=== PATIENT | male | born 1980 | race Caucasian/White ===

== ENCOUNTER 2021-06-23 09:47 | Emergency (ER) | payer OTHER ==
[~2021-06-23] VITALS: Ht 172.7 cm; Wt 90.7 kg
[~2021-06-23 09:47] MED LIST: VALTREX1000 MG
[2021-06-23] MEDS ORDERED: ONDANSETRON ODT8 MG PO (09:59)
[2021-06-23] MEDS ORDERED: DICLOFENAC PO (09:59)
[2021-06-23 10:52] LABS: ABSOLUTE LYMPHOCYTES 0.5 thou/uL (0.8-5.3); ABSOLUTE MONOCYTES 0.5 thou/uL (0.0-1.2); ABSOLUTE NEUTROPHILS 2.5 thou/uL (1.6-8.1); BASOPHILS 0.7 %; EOSINOPHILS 0.8 %; HEMATOCRIT 47.5 % (42.0-52.0); MCH 30.5 pg (26.0-34.0); MCHC 33.8 g/dL (28.0-37.0); MCV 90.4 fL (80.0-100.0); MONOCYTES 14.2 %; MPV 10.3 fl. (7.2-11.1); NUCLEATED RBCS 0 /100WBC; PLATELET COUNT* 132 thou/uL (150-400); POLYS 70.3 %; RBC 5.25 mil/uL (4.50-6.00); RDW-CV 13.1 % (10.5-14.5); WBC 3.5 thou/uL (4.0-11.0)
[2021-06-23 10:57] LABS: URINE BILIRUBIN NEGATIVE (Negative); URINE BLOOD TRACE (Negative); URINE CLARITY CLEAR; URINE COLOR YELLOW; URINE GLUCOSE-RANDOM NEGATIVE (Negative); URINE KETONES NEGATIVE (Negative); URINE LEUKOCYTES-REFLEX NEGATIVE (Negative); URINE NITRITE-REFLEX NEGATIVE (Negative); URINE PROTEIN 1+ (Negative); URINE UROBILINOGEN 0.2 E.U./dl (0.2-1.0)
[2021-06-23 11:07] LABS: CALCIUM 9.3 mg/dL (8.5-10.1); CREATININE 1.2 mg/dL (0.6-1.3)
[2021-06-23 11:11] LABS: ALBUMIN 4.3 g/dL (3.4-5.0); TOTAL BILIRUBIN 0.6 mg/dL (<0.1-1.0); TOTAL PROTEIN 8.4 g/dL (6.4-8.2)
[2021-06-23 11:15] LABS: INFLUENZA A ANTIGEN Negative (Negative); INFLUENZA B ANTIGEN Negative (Negative)
[2021-06-23] MEDS ORDERED: REGLAN 10 MG TA10 MG PO (13:18)
[2021-06-23] MEDS ORDERED: FLEXERIL PO (13:18)
[2021-06-23 13:35] VITALS: BP 108/71
== END 2021-06-23 13:36 | disposition home or self-care (01) ==
LOC: M.ERS 09:47
PROVIDERS: Nurse Practitioner Family
DX: U07.1 COVID-19 (principal); S39.012A Strain of muscle, fascia and tendon of lower back, initial encounter; Z79.899 Other long term (current) drug therapy; X50.0XXA Overexertion from strenuous movement or load, initial encounter; Y93.89 Activity, other specified; Y92.89 Other specified places as the place of occurrence of the external cause; Y99.8 Other external cause status